=== PATIENT | male | born 1960 | race Caucasian/White ===

== ENCOUNTER 2021-05-12 00:50 | Outpatient (CLI) | payer MEDICAID, SELFPAY ==
[2021-05-13 03:20] LABS: COVID-19 RT-PCR UVMMC Result Negative (Negative)
== END 2021-05-12 00:51 | disposition home or self-care (01) ==
LOC: LBO 00:51
PROVIDERS: PCP Nurse Practitioner; Visit Provider Nurse Practitioner
DX: Z20.822 Contact with and (suspected) exposure to COVID-19 (principal)
CPT/HCPCS: U0003